=== PATIENT | female | born 1970 | race Caucasian/White ===

== ENCOUNTER 2018-12-26 07:52 | Observation (INO) ==
[2018-12-26] MEDS ORDERED: *HR* OxyCODONE/APAP 5/325 TABLET PO ONE (08:06)
[2018-12-26] MEDS ORDERED: Isovue-370 500 ML BOTTLE IVP ONE (08:30)
[2018-12-26] MEDS ORDERED: 0.9 % Sodium Chloride 1,000 ML IVC ONE (08:58)
[2018-12-26 09:18] LABS: Basophils % 0.2 %; Eosinophils # 0.2 K/mcL (0.0-0.6); Eosinophils % 1.4 %; Hematocrit 45.3 % (35.3-44.9); Hemoglobin 14.8 g/dL (11.5-15.4); Immature Granulocytes % 0.5 % (0-4); Lymphocytes # 1.3 K/mcL (0.6-4.6); Lymphocytes % 9.5 %; Mean Corpuscular HGB Conc 32.7 g/dL (31.6-35.5); Mean Corpuscular Hemoglobin 29.8 pg (28.0-33.3); Mean Corpuscular Volume 91.1 fL (83.0-100.0); Mean Platelet Volume 9.4 fL (9.4-12.4); Monocytes # 0.6 K/mcL (0.0-1.3); Monocytes % 4.5 %; Neutrophils # 11.4 K/mcL (1.6-8.9); Platelet Count 230 K/mcL (140-400); Red Blood Count 4.97 M/mcL (3.82-4.97); Red Cell Distribution Width 13.2 % (11.5-14.5); Segmented Neutrophils % 83.9 %; White Blood Count 13.6 K/mcL (4.3-11.1)
[2018-12-26 09:37] LABS: Alanine Aminotransferase 31 Units/L (7-52); Albumin 4.2 g/dL (3.5-5.7); Albumin/Globulin Ratio 1.4 (1.1-2.2); Alkaline Phosphatase 115 Units/L (34-104); Aspartate Amino Transferase 35 Units/L (13-39); BUN/Creatinine Ratio 14 (6-26); Bilirubin,Total 0.7 mg/dL (0.3-1.0); Blood Urea Nitrogen 12 mg/dL (6-20); C-Reactive Protein 14 mg/L (Less than 10); Calcium 9.3 mg/dL (8.6-10.3); Carbon Dioxide 28 mEq/L (23-29); Chloride 104 mEq/L (98-107); Glucose 110 mg/dL (70-105); Osmolality,Calculated 284 (280-300); Potassium 4.2 mEq/L (3.5-5.1); Sodium 137 mEq/L (136-145); Total Protein 7.2 g/dL (6.4-8.9); Uric Acid 5.7 mg/dL (2.3-7.6); eGFR For African Americans > 60 (> 60); eGFR For Non-African Americans > 60 (> 60)
[2018-12-26] MEDS ORDERED: *HR* Enoxaparin 100 MG/ML SYRINGE SQ STA (10:52)
[2018-12-26] MEDS ORDERED: methylPREDNISolone 125 MG/2 ML VIAL IVP ONE (10:52)
[2018-12-26] MEDS ORDERED: Ipratropium/Albuterol Neb 3 ML IH ONE (10:52)
[2018-12-26] MEDS ORDERED: *HR* FentaNYL (PF) 100 MCG/2 ML VIAL IVP ONE (10:59)
[2018-12-26] MEDS ORDERED: Ondansetron 4 MG/2 ML VIAL IVP ONE (10:59)
[2018-12-26] MEDS ORDERED: Acetaminophen 325 MG TABLET PO PRN (12:18)
[2018-12-26] MEDS ORDERED: Ondansetron 4 MG/2 ML VIAL IVP PRN (12:18)
[2018-12-26] MEDS ORDERED: Naloxone 0.4 MG/ML INJ IVP PRN (12:18)
[2018-12-26 15:31] LABS: Adenovirus Not Detected (Not Detect); Bordetella Pertussis Not Detected (Not Detect); Chlamydophila pneumoniae Not Detected (Not Detect); Coronavirus 229E Not Detected (Not Detect); Coronavirus HKU1 Not Detected (Not Detect); Coronavirus NL63 Not Detected (Not Detect); Coronavirus OC43 Not Detected (Not Detect); Human Metapneumovirus Not Detected (Not Detect); Human Rhinovirus/Enterovirus Not Detected (Not Detect); Influenza A Subtype 2009 H1 Not Detected (Not Detect); Influenza A Untypeable Not Detected (Not Detect); Influenza B Not Detected (Not Detect); Mycoplasma pneumoniae Not Detected (Not Detect); Parainfluenza Virus 1 Not Detected (Not Detect); Parainfluenza Virus 2 Not Detected (Not Detect); Parainfluenza Virus 3 Not Detected (Not Detect); Parainfluenza Virus 4 Not Detected (Not Detect); Respiratory Syncytial Virus Not Detected (Not Detect)
[2018-12-26] MEDS: predniSONE 20 MG TABLET PO SCH (15:33)
[2018-12-26] MEDS: Ipratropium/Albuterol Neb 3 ML IH SCH ×2 (15:45→19:47)
[2018-12-26] MEDS: *HR* HYDROcodone/Acet 5/325 mg TABLET PO PRN ×2 (15:59→22:09)
[2018-12-26] MEDS: Nicotine 21 MG PATCH.TD24 TD SCH (15:59)
[2018-12-26] MEDS ORDERED: MethylPREDNISolone 40 MG/ML VIAL IVP SCH (16:00)
[2018-12-26] MEDS ORDERED: NALOXONE HCL SL SCH (21:00)
[2018-12-26] MEDS ORDERED: [UNRECOGNIZED DRUG - OTHER] SL SCH (21:00)
[2018-12-26] MEDS ORDERED: BUPRENORPHINE HCL SL SCH (21:00)
[2018-12-26] MEDS: *HR* Rivaroxaban 15 MG TABLET PO SCH (22:09)
[2018-12-27] MEDS: Ipratropium/Albuterol Neb 3 ML IH SCH ×4 (00:21→11:11)
[2018-12-27 01:56] LABS: Hematocrit 42.4 % (35.3-44.9); Hemoglobin 14.1 g/dL (11.5-15.4); Mean Corpuscular HGB Conc 33.3 g/dL (31.6-35.5); Mean Corpuscular Hemoglobin 30.2 pg (28.0-33.3); Mean Corpuscular Volume 90.8 fL (83.0-100.0); Mean Platelet Volume 9.4 fL (9.4-12.4); Platelet Count 209 K/mcL (140-400); Red Blood Count 4.67 M/mcL (3.82-4.97); Red Cell Distribution Width 13.2 % (11.5-14.5); White Blood Count 16.4 K/mcL (4.3-11.1)
[2018-12-27 02:19] LABS: BUN/Creatinine Ratio 16 (6-26); Blood Urea Nitrogen 12 mg/dL (6-20); Calcium 9.3 mg/dL (8.6-10.3); Carbon Dioxide 23 mEq/L (23-29); Chloride 104 mEq/L (98-107); Chol/HDL Ratio 4.6 (0-4.9); Cholesterol 187 mg/dL (< 200); Glucose 205 mg/dL (70-105); HDL Cholesterol 41 mg/dL (40-59); LDL Cholesterol,Calculated 125 mg/dL (0-99); Osmolality,Calculated 286 (280-300); Potassium 3.4 mEq/L (3.5-5.1); Sodium 135 mEq/L (136-145); Triglycerides 105 mg/dL (< 150); eGFR For African Americans > 60 (> 60); eGFR For Non-African Americans > 60 (> 60)
[2018-12-27 07:35] VITALS: BP 110/67
[2018-12-27] MEDS: Nicotine 21 MG PATCH.TD24 TD SCH (08:30)
[2018-12-27] MEDS: predniSONE 20 MG TABLET PO SCH (08:30)
[2018-12-27] MEDS: *HR* Rivaroxaban 15 MG TABLET PO SCH (08:30)
== END 2018-12-27 12:04 | disposition home or self-care (01) ==
LOC: 3BNU 07:52 → EMEROOARM 07:52 → SUATTDRO 12:59 → 3BNU 13:27
PROVIDERS: ADMIT Internal Medicine; ATTEND Family Medicine